=== PATIENT | male | born 1955 | race Two or more races ===

== ENCOUNTER 2020-07-09 11:49 | Inpatient (IN) | payer MEDICARE, OTHER ==
[~2020-07-09] VITALS: Ht 180.3 cm; Wt 78.0 kg
[2020-07-09] MEDS ORDERED: SODIUM CHLORIDE 0.9% 1,000 ML IV ONE (12:15)
[2020-07-09] MEDS ORDERED: FUROSEMIDE 20MG/2ML VIAL IVP ONE (12:15)
[2020-07-09 12:35] LABS: BASOPHILS % 0.9 % (0.0-2.0); EOSINOPHILS % 1.4 % (0.0-5.0); HEMATOCRIT. 38.1 % (42.0-52.0); HEMOGLOBIN. 12.2 g/dL (14.0-18.0); LYMPHOCYTES % 14.4 % (20.0-50.0); MEAN CORPUSCULAR HEMOGLOBIN 29.9 pg (28.0-32.0); MEAN CORPUSCULAR VOLUME 93.1 fL (80.0-94.0); MONOCYTES % 6.3 % (2.0-8.0); PLATELET 232 x1000/uL (130-400); RED BLOOD CELL COUNT 4.09 mill/uL (4.7-6.1); RED CELL DISTRIBUTION WIDTH 13.7 % (11.6-14.6)
[2020-07-09 12:37] LABS: CHLORIDE 110 mEq/L (98-107)
[2020-07-09] MEDS ORDERED: FUROSEMIDE 40MG/4ML VIAL IVP ONE (15:45)
[2020-07-09] MEDS ORDERED: CALCIUM GLUCONATE 100MG/ML 10ML VIAL IV ONE (16:15)
[2020-07-09] MEDS ORDERED: ONDANSETRON HCL 4MG/2ML INJ IV PRN (20:45)
[2020-07-09] MEDS ORDERED: DIPHENHYDRAMINE 50MG/ML VIAL IV PRN (20:45)
[2020-07-09] MEDS ORDERED: ACETAMINOPHEN 325MG TABLET PO PRN (20:45)
[2020-07-09] MEDS ORDERED: CLONIDINE 0.1MG TABLET PO PRN (20:45)
[2020-07-10 05:23] LABS: BASOPHILS % 1.1 % (0.0-2.0); HEMATOCRIT. 36.5 % (42.0-52.0); HEMOGLOBIN. 12.2 g/dL (14.0-18.0); LYMPHOCYTES % 15.8 % (20.0-50.0); MEAN CORPUSCULAR HEMOGLOBIN 30.5 pg (28.0-32.0); MEAN CORPUSCULAR VOLUME 91.3 fL (80.0-94.0); MEAN PLATELET VOLUME 9.4 fl (7.4-10.4); NEUTROPHILS % 75.1 % (40.0-76.0); PLATELET 195 x1000/uL (130-400); RED CELL DISTRIBUTION WIDTH 13.4 % (11.6-14.6)
[2020-07-10 06:09] LABS: CHLORIDE 111 mEq/L (98-107)
[2020-07-10 06:24] LABS: LDL CHOLESTEROL 96 mg/dL (5-100)
[2020-07-10 06:25] LABS: HDL CHOLESTEROL 38 mg/dL (40-59)
[2020-07-10] MEDS ORDERED: FUROSEMIDE 100MG/10ML VIAL IVP NR (08:00)
[2020-07-10] MEDS ORDERED: SODIUM POLYSTYRENE SULFONATE 15 G/60 ML BOT PO NR ×2 (08:00→13:00)
[2020-07-10] MEDS ORDERED: SODIUM BICARBONATE 8.4% 1 MEQ/ML 50ML SYR IV NR (08:30)
[2020-07-10 10:40] LABS: CHLORIDE 112 mEq/L (98-107)
[2020-07-10] MEDS: CITRIC ACID/SODIUM CITRATE SOLN 30ML UDC PO SCH ×3 (12:02→17:52)
[2020-07-10] MEDS ORDERED: AZITHROMYCIN 500 MG TABLET PO SCH (14:15)
[2020-07-10 22:47] VITALS: BP 141/90
== END 2020-07-10 22:42 | disposition left against medical advice (07) | DRG 425 ==
LOC: ER 11:49 → MICUSO 18:10 → EDBEDREQ 18:12
PROVIDERS: ADMIT Internal Medicine; ATTEND Internal Medicine
DX: E87.5 Hyperkalemia (principal); I12.0 Hypertensive chronic kidney disease with stage 5 chronic kidney disease or end stage renal disease; N18.5 Chronic kidney disease, stage 5; D64.9 Anemia, unspecified; E11.22 Type 2 diabetes mellitus with diabetic chronic kidney disease; E78.00 Pure hypercholesterolemia, unspecified; E78.5 Hyperlipidemia, unspecified; Z53.29 Procedure and treatment not carried out because of patient's decision for other reasons; Z82.49 Family history of ischemic heart disease and other diseases of the circulatory system; Z83.3 Family history of diabetes mellitus; Z91.14 Patient's other noncompliance with medication regimen; Z91.15 Patient's noncompliance with renal dialysis; J18.9 Pneumonia, unspecified organism
CPT/HCPCS: 36415; 71045; 80048; 80053; 80061; 84443; 85025; 93005; 93970; 96361; 96374; 96375; 96376; 99285; J0610; J1940; J3490; J7030